=== PATIENT | male | born 1980 | race Caucasian/White ===

== ENCOUNTER → 2023-01-15 09:41 | Outpatient (CLI) | payer BC, SELFPAY ==
[2023-01-15 10:34] LABS: Estimated Glomerular Filt Rate 125 ml/min (>60); GFR (African American) 151 ML/MIN (>60)
[2023-01-15 10:52] LABS: Free T4 (Free Thyroxine) 1.14 ng/dl (0.78-2.19)
[2023-01-15 11:05] LABS: Thyroid Stimulating Hormone 2.96 uIU/mL (0.465-4.68)
[2023-01-16 09:53] LABS: Thyroid Peroxidase Antibodies 12 IU/mL (0-34); Triiodothyronine (T3) Total 138 ng/dL (71-180)
== END ==
PROVIDERS: PCP Internal Medicine; Visit Provider Surgery
DX: H53.2 Diplopia (principal); H50.05 Alternating esotropia
CPT/HCPCS: 36415; 82565; 84439; 84443; 84480; 86376